=== PATIENT | female | born 1950 | race Caucasian/White ===

== ENCOUNTER 2022-04-24 08:09 | Outpatient (RCR) | payer MEDICARE, BC, SELFPAY ==
--- NOTE | 2022-04-20 16:30 | ONC.NURNOTE ---
Authorization: User: Ameena Raeshorty Date: 09/05/21 13:07 Type: Eligibility Determination Note... Request received from [facility] for prior authorization of Herceptin J9355, Docetaxel J9171, Carboplatin J9045, Aloxi J2469, Emend J1453 and Neulasta J2505. Patient carries Medicare as primary insurance. Per CMS.gov LCD [id number] no prior authorization is required for Herceptin, LCD [id number] no prior authorization is required for Docetaxel, LCD [id number] no prior authorization is required for Carboplatin and LCD [id number] no prior authorization is required for Neulasta. Per CMS.gov no prior authorization is required for Aloxi and Emend. Services are based on medical necessity and follows Medicare guidelines.
[2022-04-24 08:31] VITALS: BP 121/81; RESP 14; TEMP 36.4; O2SAT 96
[2022-04-24 08:34] LABS: Basophils Percent Auto 0.4 % (0.0-3.0); Eosinophils Percent Auto 1.6 % (0.0-7.0); Hematocrit 37.4 % (33.0-51.0); Hemoglobin* 12.4 gm/dL (12.0-16.0); Immature Granulocytes Abs Auto 0.01 K/uL (0.00-0.30); Lymphocytes Percent Auto 61.9 % (20-44); Mean Corpuscular HGB Conc 33 gm/dL (32-36); Mean Corpuscular Hemoglobin 31 pg (26-34); Mean Corpuscular Volume 94 fL (80-100); Monocytes Percent Auto 4.1 % (0.0-11.0); Neutrophils Percent Auto 31.9 % (42.0-72.0); Platelet Count* 346 K/uL (140-440); Red Blood Count 3.97 m/uL (4.00-5.20); White Blood Count* 11.09 K/uL (4.50-11.00)
[2022-04-24 08:56] LABS: Slide Review Reflex Yes
[2022-04-24 09:15] LABS: Slide Review Acceptable Review (Acceptable)
[2022-04-24 11:30] LABS: Albumin* 3.2 g/dL (3.3-5.0); Bilirubin Total* 0.3 mg/dL (0.1-1.5); Blood Urea Nitrogen* 17 mg/dL (7-30); Calcium* 9.4 mg/dL (8.4-10.6); Carbon Dioxide* 21 mmol/L (20-32); Chloride* 101 mmol/L (96-114); Creatinine* 0.6 mg/dL (0.5-1.5); Est. Creatinine Clearance* 40.81; Glucose* 167 mg/dL (60-115); Potassium* 4.6 mmol/L (3.6-5.1); Sodium* 133 mmol/L (135-149); Total Protein* 6.9 g/dL (6.0-8.3)
[2022-04-24 11:31] LABS: Alanine Aminotransferase* 37 U/L (4-35); Alkaline Phosphatase* 110 U/L (40-150); Aspartate Amino Transferase* 17 U/L (12-35)
[2022-04-24] MEDS: SODIUM CHLORIDE 0.9 % (FLUSH) 10 ML SYRINGE IVF (11:35)
[2022-04-24] MEDS: HEPARIN 500 UNIT/5 ML SYRINGE IVF (11:35)
--- NOTE | 2022-04-24 12:18 | ONC.NURNOTE ---
patient damir. treatment well. waited till na was back at 133 before discharged. zometa info given. echo scheduled. pt aware and has form to get dental approval for zometa.
--- NOTE | 2022-04-24 18:58 | ONC.NURNOTE ---
09/05/21 UR note documented by Ameena Bundy RN: Request received from [facility] for prior authorization of Herceptin J9355, Docetaxel J9171, Carboplatin J9045, Aloxi J2469, Emend J1453 and Neulasta J2505. Patient carries Medicare as primary insurance. Per CMS.gov LCD [id number] no prior authorization is required for Herceptin, LCD [id number] no prior authorization is required for Docetaxel, LCD [id number] no prior authorization is required for Carboplatin and LCD [id number] no prior authorization is required for Neulasta. Per CMS.gov no prior authorization is required for Aloxi and Emend. Services are based on medical necessity and follows Medicare guidelines.
--- NOTE | 2022-04-25 11:26 | URNOTE ---
Received request for prior auth for Zoledronic Acid(Zometa) J3489. Pt has medicare and BC Supplement. Prior auth is not required. Services are based on medical necessity and follow medicare guidelines.
== END 2022-05-14 23:59 | disposition home or self-care (01) ==
LOC: CCIC 08:09
PROVIDERS: Clinical Nurse Specialist; PCP Physician Assistant Medical; Visit Provider Internal Medicine Medical Oncology
DX: C50.919 Malignant neoplasm of unspecified site of unspecified female breast (principal); C77.3 Secondary and unspecified malignant neoplasm of axilla and upper limb lymph nodes; C50.912 Malignant neoplasm of unspecified site of left female breast; Z17.0 Estrogen receptor positive status [ER+]; Z79.811 Long term (current) use of aromatase inhibitors; C91.10 Chronic lymphocytic leukemia of B-cell type not having achieved remission; M81.8 Other osteoporosis without current pathological fracture; E87.1 Hypo-osmolality and hyponatremia
CPT/HCPCS: 36415; 36591; 80053; 85025; 96413; 99212; 99214; J1642; J7050; J9355

== ENCOUNTER 2022-05-31 12:40 | Outpatient (CLI) | payer MEDICARE, BC, SELFPAY | END 2022-05-31 12:41 | disposition home or self-care (01) | LOC: RAD 12:41 | PROVIDERS: PCP Physician Assistant Medical; Visit Provider Clinical Nurse Specialist | DX: I10 Essential (primary) hypertension (principal); I51.7 Cardiomegaly; C50.919 Malignant neoplasm of unspecified site of unspecified female breast; C77.3 Secondary and unspecified malignant neoplasm of axilla and upper limb lymph nodes; Z92.21 Personal history of antineoplastic chemotherapy | CPT/HCPCS: 93306 ==

== ENCOUNTER 2022-09-11 11:02 | Outpatient (CLI) | payer MEDICARE, BC, SELFPAY ==
--- NOTE | 2022-09-11 11:30 | CRLHL7_ITS ---
For Patients: As a result of the Century Cures Act, medical imaging exams and procedure reports are released immediately into your electronic medical record. You may view this report before your referring provider. If you have questions, please contact your health care provider. RIGHT SCREENING MAMMOGRAM WITH COMPUTER-AIDED DETECTION AND TOMOSYNTHESIS TECHNIQUE: CC and MLO views were obtained. These mammographic images have been obtained using full-field digital technique. These mammographic images were interpreted with the benefit of computer-aided detection. Breast Tomosynthesis was used in this interpretation. COMPARISON FILM: 05/03/21, 12/25/17. FINDINGS: The breasts are heterogeneously dense, which may obscure small masses IMPRESSION: There is no radiographic evidence for malignancy. ASSESSMENT: BI-RADS Category 1: Negative RECOMMENDATION: Routine screening mammogram in 1 year. A lay language report of this examination will be provided to the patient. Ernesto Mercado M.D. Diagnostic Radiologist [email or web address] TAMIKA/Dictated by: Ernesto Mercado MD @ 09/11/2022 12:48:00 PM (Electronically Signed)
== END 2022-09-11 11:03 | disposition home or self-care (01) ==
LOC: MAMMO 11:05
PROVIDERS: PCP Physician Assistant Medical; Visit Provider Internal Medicine Medical Oncology
DX: Z12.31 Encounter for screening mammogram for malignant neoplasm of breast (principal); R92.2 Inconclusive mammogram; C50.919 Malignant neoplasm of unspecified site of unspecified female breast; Z09 Encounter for follow-up examination after completed treatment for conditions other than malignant neoplasm
CPT/HCPCS: 77063; 77067; 93306

== ENCOUNTER 2022-09-18 08:00 | Outpatient (RCR) | payer MEDICARE, BC, SELFPAY ==
[2022-05-15 10:06] LABS: Basophils Absolute Auto 0.05 K/uL (0.00-0.30); Basophils Percent Auto 0.5 % (0.0-3.0); Eosinophils Absolute Auto 0.23 K/uL (0.00-0.50); Eosinophils Percent Auto 2.3 % (0.0-7.0); Hematocrit 36.7 % (33.0-51.0); Hemoglobin* 12.2 gm/dL (12.0-16.0); Immature Granulocytes Abs Auto 0.02 K/uL (0.00-0.30); Mean Corpuscular HGB Conc 33 gm/dL (32-36); Mean Corpuscular Hemoglobin 31 pg (26-34); Mean Corpuscular Volume 93 fL (80-100); Monocytes Percent Auto 3.8 % (0.0-11.0); Neutrophils Percent Auto 38.2 % (42.0-72.0); Platelet Count* 363 K/uL (140-440); RDW Coefficient of Variation % 13.2 % (11.5-15.5); Red Blood Count 3.95 m/uL (4.00-5.20); White Blood Count* 10.15 K/uL (4.50-11.00)
[2022-05-15 10:18] LABS: Albumin* 3.9 g/dL (3.3-5.0); Chloride* 100 mmol/L (96-114)
[2022-05-15 10:19] LABS: Potassium* 4.3 mmol/L (3.6-5.1); Sodium* 133 mmol/L (135-149)
[2022-05-15 10:21] LABS: Aspartate Amino Transferase* 34 U/L (12-35); Bilirubin Total* 0.2 mg/dL (0.1-1.5); Carbon Dioxide* 25 mmol/L (20-32); Creatinine* 0.6 mg/dL (0.5-1.5); Estimated Glomerular Filt Rate 96 ml/min
[2022-05-15 10:22] LABS: Alanine Aminotransferase* 30 U/L (4-35); Alkaline Phosphatase* 117 U/L (40-150); Blood Urea Nitrogen* 13 mg/dL (7-30); Calcium* 9.3 mg/dL (8.4-10.6); Glucose* 101 mg/dL (60-115)
[2022-05-15 10:42] LABS: Slide Review Reflex Yes
[2022-05-15 11:06] LABS: Slide Review Acceptable Review (Acceptable)
[2022-05-15 12:09] VITALS: BP 114/74; PULSE 83; RESP 16; TEMP 36.6; O2SAT 97
[2022-05-15] MEDS: 0.9 % SODIUM CHLORIDE 250 ml IV (12:10)
[2022-05-15] MEDS: HEPARIN 500 UNIT/5 ML SYRINGE IVF (12:10)
[2022-05-15] MEDS: SODIUM CHLORIDE 0.9 % (FLUSH) 10 ML SYRINGE IVF (12:10)
[2022-06-05 08:49] LABS: Basophils Percent Auto 0.3 % (0.0-3.0); Eosinophils Percent Auto 2.3 % (0.0-7.0); Hematocrit 36.3 % (33.0-51.0); Immature Granulocytes Abs Auto 0.01 K/uL (0.00-0.30); Lymphocytes Percent Auto 56.2 % (20-44); Mean Corpuscular HGB Conc 33 gm/dL (32-36); Mean Corpuscular Hemoglobin 30 pg (26-34); Mean Corpuscular Volume 92 fL (80-100); Monocytes Percent Auto 3.5 % (0.0-11.0); Neutrophils Percent Auto 37.6 % (42.0-72.0); Platelet Count* 346 K/uL (140-440); RDW Coefficient of Variation % 13.9 % (11.5-15.5); Red Blood Count 3.95 m/uL (4.00-5.20); White Blood Count* 12.69 K/uL (4.50-11.00)
[2022-06-05 08:59] LABS: Slide Review Reflex No
[2022-06-05 09:01] LABS: Albumin* 3.9 g/dL (3.3-5.0); Chloride* 100 mmol/L (96-114)
[2022-06-05 09:02] LABS: Potassium* 4.3 mmol/L (3.6-5.1); Sodium* 133 mmol/L (135-149)
[2022-06-05 09:04] LABS: Aspartate Amino Transferase* 40 U/L (12-35); Blood Urea Nitrogen* 19 mg/dL (7-30); Carbon Dioxide* 24 mmol/L (20-32); Creatinine* 0.7 mg/dL (0.5-1.5); Estimated Glomerular Filt Rate 92 ml/min; Total Protein* 6.9 g/dL (6.0-8.3)
[2022-06-05 09:05] LABS: Alanine Aminotransferase* 54 U/L (4-35); Alkaline Phosphatase* 104 U/L (40-150); Calcium* 9.8 mg/dL (8.4-10.6); Glucose* 65 mg/dL (60-115)
[2022-06-05 09:11] LABS: Bilirubin Total* < 0.1 mg/dL (0.1-1.5)
[2022-06-05] MEDS: SODIUM CHLORIDE 0.9 % (FLUSH) 10 ML SYRINGE IVF (10:31)
[2022-06-05] MEDS: HEPARIN 500 UNIT/5 ML SYRINGE IVF (10:31)
[2022-06-26 09:02] VITALS: BP 125/79; PULSE 65; RESP 16; TEMP 36.3; O2SAT 100
[2022-06-26 10:29] LABS: Albumin* 4.1 g/dL (3.3-5.0); Chloride* 98 mmol/L (96-114); Sodium* 131 mmol/L (135-149)
[2022-06-26 10:30] LABS: Potassium* 4.6 mmol/L (3.6-5.1)
[2022-06-26 10:32] LABS: Alanine Aminotransferase* 56 U/L (4-35); Alkaline Phosphatase* 104 U/L (40-150); Aspartate Amino Transferase* 49 U/L (12-35); Bilirubin Total* 0.2 mg/dL (0.1-1.5); Blood Urea Nitrogen* 17 mg/dL (7-30); Carbon Dioxide* 25 mmol/L (20-32); Creatinine* 0.7 mg/dL (0.5-1.5); Estimated Glomerular Filt Rate 92 ml/min; Total Protein* 6.9 g/dL (6.0-8.3)
[2022-06-26 10:33] LABS: Calcium* 9.6 mg/dL (8.4-10.6); Glucose* 156 mg/dL (60-115)
[2022-06-26] MEDS: HEPARIN 500 UNIT/5 ML SYRINGE IVF (11:34)
[2022-06-26] MEDS: SODIUM CHLORIDE 0.9 % (FLUSH) 10 ML SYRINGE IVF (11:34)
--- NOTE | 2022-06-26 15:22 | ONC.NURNOTE ---
Pt here for herceptin. Pt still has not received dental clearance for zometa. Pt aware she needs to make an appt with her dentist.
[2022-07-17 09:10] LABS: Basophils Percent Auto 0.3 % (0.0-3.0); Eosinophils Percent Auto 1.5 % (0.0-7.0); Hematocrit 36.6 % (33.0-51.0); Hemoglobin* 12.1 gm/dL (12.0-16.0); Immature Granulocytes Abs Auto 0.01 K/uL (0.00-0.30); Lymphocytes Percent Auto 57.8 % (20-44); Mean Corpuscular HGB Conc 33 gm/dL (32-36); Mean Corpuscular Hemoglobin 31 pg (26-34); Mean Corpuscular Volume 93 fL (80-100); Monocytes Percent Auto 4.9 % (0.0-11.0); Neutrophils Percent Auto 35.4 % (42.0-72.0); Platelet Count* 311 K/uL (140-440); Red Blood Count 3.94 m/uL (4.00-5.20); White Blood Count* 11.93 K/uL (4.50-11.00)
[2022-07-17 09:17] LABS: Slide Review Reflex No
[2022-07-17 09:28] LABS: Albumin* 4.2 g/dL (3.3-5.0); Chloride* 99 mmol/L (96-114); Sodium* 133 mmol/L (135-149)
[2022-07-17 09:29] LABS: Potassium* 4.4 mmol/L (3.6-5.1)
[2022-07-17 09:31] LABS: Alkaline Phosphatase* 102 U/L (40-150); Aspartate Amino Transferase* 36 U/L (12-35); Bilirubin Total* 0.3 mg/dL (0.1-1.5); Blood Urea Nitrogen* 18 mg/dL (7-30); Carbon Dioxide* 25 mmol/L (20-32); Creatinine* 0.8 mg/dL (0.5-1.5); Estimated Glomerular Filt Rate 79 ml/min; Total Protein* 6.9 g/dL (6.0-8.3)
[2022-07-17 09:32] LABS: Alanine Aminotransferase* 42 U/L (4-35); Glucose* 206 mg/dL (60-115)
[2022-07-17] MEDS: HEPARIN 500 UNIT/5 ML SYRINGE IVF (11:08)
[2022-07-17] MEDS: 0.9 % SODIUM CHLORIDE 250 ml IV (11:08)
[2022-07-17] MEDS: SODIUM CHLORIDE 0.9 % (FLUSH) 10 ML SYRINGE IVF (11:08)
[2022-08-07 08:18] VITALS: BP 115/73; PULSE 74; RESP 16; TEMP 36.4; O2SAT 98
[2022-08-07 08:32] LABS: Basophils Percent Auto 0.2 % (0.0-3.0); Eosinophils Percent Auto 2.5 % (0.0-7.0); Hematocrit 36.7 % (33.0-51.0); Immature Granulocytes Abs Auto 0.01 K/uL (0.00-0.30); Lymphocytes Percent Auto 62.5 % (20-44); Mean Corpuscular HGB Conc 33 gm/dL (32-36); Mean Corpuscular Hemoglobin 31 pg (26-34); Mean Corpuscular Volume 94 fL (80-100); Monocytes Percent Auto 4.2 % (0.0-11.0); Neutrophils Percent Auto 30.5 % (42.0-72.0); Platelet Count* 285 K/uL (140-440); RDW Coefficient of Variation % 13.7 % (11.5-15.5); Red Blood Count 3.92 m/uL (4.00-5.20); White Blood Count* 12.35 K/uL (4.50-11.00)
[2022-08-07 08:54] LABS: Albumin* 4.1 g/dL (3.3-5.0); Chloride* 98 mmol/L (96-114); Sodium* 129 mmol/L (135-149)
[2022-08-07 08:55] LABS: Potassium* 4.6 mmol/L (3.6-5.1)
[2022-08-07 08:57] LABS: Alanine Aminotransferase* 51 U/L (4-35); Alkaline Phosphatase* 87 U/L (40-150); Aspartate Amino Transferase* 42 U/L (12-35); Bilirubin Total* 0.2 mg/dL (0.1-1.5); Blood Urea Nitrogen* 22 mg/dL (7-30); Carbon Dioxide* 23 mmol/L (20-32); Creatinine* 0.8 mg/dL (0.5-1.5); Estimated Glomerular Filt Rate 79 ml/min; Glucose* 229 mg/dL (60-115); Slide Review Reflex No; Total Protein* 6.7 g/dL (6.0-8.3)
[2022-08-07 08:58] LABS: Calcium* 10.3 mg/dL (8.4-10.6)
[2022-08-07] MEDS: 0.9 % SODIUM CHLORIDE 250 ml IV (09:26)
[2022-08-07] MEDS: HEPARIN 500 UNIT/5 ML SYRINGE IVF (09:26)
[2022-08-07] MEDS: SODIUM CHLORIDE 0.9 % (FLUSH) 10 ML SYRINGE IVF (09:27)
--- NOTE | 2022-08-07 09:35 | ONC.NURNOTE ---
Sodium lower than usual-patient states she is taking one sodium tablet a day -doesn't drink too much water and loves salt so not sure why she is lower. Denies feeling any different ie: nausea,confusion increased weakness but is always weak so not a change for her. Talked with NATACHA Rodriguez and plan is to increase her sodium tablets to twice a day. Reviewed hyponatremia with patient and she states You already gave me that stuff and went through it.
[2022-08-28 08:26] LABS: Basophils Percent Auto 0.4 % (0.0-3.0); Eosinophils Percent Auto 1.7 % (0.0-7.0); Hematocrit 39.1 % (33.0-51.0); Hemoglobin* 12.9 gm/dL (12.0-16.0); Immature Granulocytes Pct Auto 0.1 %; Lymphocytes Percent Auto 47.1 % (20-44); Mean Corpuscular HGB Conc 33 gm/dL (32-36); Mean Corpuscular Hemoglobin 31 pg (26-34); Mean Corpuscular Volume 93 fL (80-100); Monocytes Percent Auto 4.7 % (0.0-11.0); Platelet Count* 342 K/uL (140-440); RDW Coefficient of Variation % 13.6 % (11.5-15.5); Red Blood Count 4.22 m/uL (4.00-5.20); White Blood Count* 13.55 K/uL (4.50-11.00)
[2022-08-28 08:30] LABS: Slide Review Reflex No
[2022-08-28 08:43] LABS: Albumin* 4.3 g/dL (3.3-5.0); Chloride* 99 mmol/L (96-114); Potassium* 4.7 mmol/L (3.6-5.1); Sodium* 132 mmol/L (135-149)
[2022-08-28 08:45] LABS: Bilirubin Total* 0.2 mg/dL (0.1-1.5); Carbon Dioxide* 25 mmol/L (20-32); Creatinine* 0.7 mg/dL (0.5-1.5); Estimated Glomerular Filt Rate 92 ml/min
[2022-08-28 08:46] LABS: Alanine Aminotransferase* 65 U/L (4-35); Alkaline Phosphatase* 101 U/L (40-150); Aspartate Amino Transferase* 46 U/L (12-35); Blood Urea Nitrogen* 16 mg/dL (7-30); Glucose* 111 mg/dL (60-115)
[2022-08-28] MEDS: SODIUM CHLORIDE 0.9 % (FLUSH) 10 ML SYRINGE IVF (09:32)
[2022-08-28] MEDS: HEPARIN 500 UNIT/5 ML SYRINGE IVF (09:32)
[2022-08-28] MEDS: 0.9 % SODIUM CHLORIDE 250 ml IV (09:32)
--- NOTE | 2022-09-15 12:09 | URNOTE ---
Request received for authorization for Herceptin (J9355). Prior authorization is not required as services are based on medical necessity and follow Medicare guidelines.
[2022-09-18 08:00] VITALS: BP 114/70; PULSE 68; RESP 14; TEMP 36.6; O2SAT 95
[2022-09-18 08:28] LABS: Basophils Absolute Auto 0.04 K/uL (0.00-0.30); Basophils Percent Auto 0.4 % (0.0-3.0); Eosinophils Absolute Auto 0.19 K/uL (0.00-0.50); Eosinophils Percent Auto 1.8 % (0.0-7.0); Hematocrit 38.8 % (33.0-51.0); Hemoglobin* 12.9 gm/dL (12.0-16.0); Immature Granulocytes Abs Auto 0.01 K/uL (0.00-0.30); Immature Granulocytes Pct Auto 0.1 %; Lymphocytes Percent Auto 55.6 % (20-44); Mean Corpuscular HGB Conc 33 gm/dL (32-36); Mean Corpuscular Hemoglobin 31 pg (26-34); Mean Corpuscular Volume 92 fL (80-100); Monocytes Percent Auto 5.2 % (0.0-11.0); Neutrophils Percent Auto 36.9 % (42.0-72.0); Platelet Count* 339 K/uL (140-440); RDW Coefficient of Variation % 13.1 % (11.5-15.5); Red Blood Count 4.22 m/uL (4.00-5.20)
[2022-09-18 08:35] LABS: Slide Review Reflex No
[2022-09-18 08:44] LABS: Albumin* 4.2 g/dL (3.3-5.0); Chloride* 99 mmol/L (96-114); Potassium* 4.8 mmol/L (3.6-5.1); Sodium* 132 mmol/L (135-149)
[2022-09-18 08:45] VITALS: BP 114/70; PULSE 68; RESP 14; TEMP 36.6; O2SAT 95
[2022-09-18 08:47] LABS: Alanine Aminotransferase* 33 U/L (4-35); Alkaline Phosphatase* 99 U/L (40-150); Aspartate Amino Transferase* 29 U/L (12-35); Bilirubin Total* 0.5 mg/dL (0.1-1.5); Blood Urea Nitrogen* 17 mg/dL (7-30); Carbon Dioxide* 27 mmol/L (20-32); Creatinine* 0.7 mg/dL (0.5-1.5); Estimated Glomerular Filt Rate 92 ml/min; Glucose* 287 mg/dL (60-115)
[2022-09-18 08:48] LABS: Calcium* 10.6 mg/dL (8.4-10.6)
[2022-09-18] MEDS: HEPARIN 500 UNIT/5 ML SYRINGE IVF (10:03)
[2022-09-18] MEDS: SODIUM CHLORIDE 0.9 % (FLUSH) 10 ML SYRINGE IVF (10:03)
[2022-09-18] MEDS: 0.9 % SODIUM CHLORIDE 250 ml IV (10:03)
--- NOTE | 2022-09-18 13:52 | ONC.NURNOTE ---
blood sugar a bit high due to recent eating. pt aware and monitoring. sodium 132. discussed with Dr. Castellanos. pt is taking na. 2 tabs a day for the last month and will continue.
--- NOTE | 2022-09-21 13:29 | ONC.NURNOTE ---
Call from patients daughter Rosario with questions about Anastrozole. They were unsure if Angelica was supposed to continue taking this medication. I informed them that we would continue this medication for a minimum of 5 years, 01/2027. Rosario is requesting a refill. Request given to Jennifer Vogt APRN to review.
== END 2022-11-11 23:59 | disposition home or self-care (01) ==
LOC: CCIC 08:00
PROVIDERS: Clinical Nurse Specialist; PCP Physician Assistant Medical; Referring Provider Physician Assistant Medical; Visit Provider Internal Medicine Medical Oncology
DX: C50.912 Malignant neoplasm of unspecified site of left female breast (principal); C77.3 Secondary and unspecified malignant neoplasm of axilla and upper limb lymph nodes; Z79.811 Long term (current) use of aromatase inhibitors
CPT/HCPCS: 36415; 36591; 80048; 80053; 85025; 96413; 99212; 99214; 99215; J1642; J7050; J9355

== ENCOUNTER 2022-11-03 11:14 | Outpatient (CLI) | payer MEDICARE, BC, SELFPAY ==
[2022-11-03 13:51] LABS: Creatinine Urine 68.2 mg/dL
[2022-11-03 13:52] LABS: Microalbumin Creatinine Ratio 40 mg/g (0-30); Microalbumin Urine 3 mg/dL
[2022-11-03 15:04] LABS: Albumin* 4.2 g/dL (3.3-5.0); Chloride* 96 mmol/L (96-114); Sodium* 131 mmol/L (135-149)
[2022-11-03 15:06] LABS: Cholesterol* 174 mg/dL (90-199); Creatinine* 0.8 mg/dL (0.5-1.5); Estimated Glomerular Filt Rate 78 ml/min
[2022-11-03 15:07] LABS: Alanine Aminotransferase* 38 U/L (4-35); Alkaline Phosphatase* 95 U/L (40-150); Aspartate Amino Transferase* 28 U/L (12-35); Bilirubin Total* 0.5 mg/dL (0.1-1.5); Blood Urea Nitrogen* 19 mg/dL (7-30); Carbon Dioxide* 30 mmol/L (20-32); Glucose* 196 mg/dL (60-115); Total Protein* 6.7 g/dL (6.0-8.3); Triglycerides* 144 mg/dL (40-149)
[2022-11-03 15:08] LABS: Calcium* 10.3 mg/dL (8.4-10.6); HDL Cholesterol* 82 mg/dL (>=50); LDL Cholesterol Calculated 63 mg/dL (<100)
[2022-11-03 15:51] LABS: Vitamin B12* 658 pg/mL (243-894)
== END 2022-11-03 11:15 | disposition home or self-care (01) ==
PROVIDERS: PCP Physician Assistant Medical; Visit Provider Physician Assistant Medical
DX: E11.9 Type 2 diabetes mellitus without complications (principal); N18.9 Chronic kidney disease, unspecified; I10 Essential (primary) hypertension; E87.1 Hypo-osmolality and hyponatremia
CPT/HCPCS: 80053; 80061; 82043; 82570; 82607; 84443

== ENCOUNTER 2022-11-27 09:23 | Outpatient (RCR) | payer MEDICARE, BC, SELFPAY | END 2023-05-26 23:59 | disposition home or self-care (01) | LOC: CCIC 09:23 | PROVIDERS: PCP Physician Assistant Medical; Referring Provider Physician Assistant Medical; Visit Provider Internal Medicine Medical Oncology | DX: C50.912 Malignant neoplasm of unspecified site of left female breast (principal); C91.10 Chronic lymphocytic leukemia of B-cell type not having achieved remission; M81.8 Other osteoporosis without current pathological fracture; T38.6X5A Adverse effect of antigonadotrophins, antiestrogens, antiandrogens, not elsewhere classified, initial encounter | CPT/HCPCS: 99212; 99214 ==

== ENCOUNTER 2023-12-06 13:00 | Outpatient (RCR) | payer MEDICARE, BC, SELFPAY ==
[2023-06-28 10:20] LABS: Basophils Percent Auto 0.4 % (0.0-3.0); Eosinophils Percent Auto 2.4 % (0.0-7.0); Hemoglobin* 13.3 gm/dL (12.0-16.0); Lymphocytes Percent Auto 60.4 % (20-44); Mean Corpuscular HGB Conc 32 gm/dL (32-36); Mean Corpuscular Hemoglobin 31 pg (26-34); Mean Corpuscular Volume 95 fL (80-100); Monocytes Percent Auto 4.8 % (0.0-11.0); Platelet Count* 283 K/uL (140-440)
[2023-06-28 10:59] LABS: Slide Review Acceptable Review (Acceptable); Slide Review Reflex Yes
[2023-12-06 13:08] LABS: Basophils Absolute Auto 0.04 K/uL (0.00-0.30); Basophils Percent Auto 0.5 % (0.0-3.0); Eosinophils Absolute Auto 0.19 K/uL (0.00-0.50); Eosinophils Percent Auto 2.2 % (0.0-7.0); Hematocrit 40.7 % (33.0-51.0); Hemoglobin* 13.2 gm/dL (12.0-16.0); Lymphocytes Percent Auto 57.9 % (20-44); Mean Corpuscular HGB Conc 32 gm/dL (32-36); Mean Corpuscular Hemoglobin 31 pg (26-34); Mean Corpuscular Volume 94 fL (80-100); Monocytes Percent Auto 4.7 % (0.0-11.0); Neutrophils Percent Auto 34.7 % (42.0-72.0); Platelet Count* 318 K/uL (140-440); RDW Coefficient of Variation % 12.7 % (11.5-15.5); Red Blood Count 4.31 m/uL (4.00-5.20); White Blood Count* 8.45 K/uL (4.50-11.00)
[2023-12-06 13:11] LABS: Slide Review Reflex No
== END 2023-12-25 23:59 | disposition home or self-care (01) ==
LOC: CCIC 13:00
PROVIDERS: Internal Medicine Hematology & Oncology; PCP Physician Assistant Medical; Referring Provider Physician Assistant Medical; Visit Provider Physician Assistant
DX: C91.10 Chronic lymphocytic leukemia of B-cell type not having achieved remission (principal); C50.912 Malignant neoplasm of unspecified site of left female breast; Z17.0 Estrogen receptor positive status [ER+]; Z79.811 Long term (current) use of aromatase inhibitors; M81.8 Other osteoporosis without current pathological fracture; T38.6X5A Adverse effect of antigonadotrophins, antiestrogens, antiandrogens, not elsewhere classified, initial encounter; N18.9 Chronic kidney disease, unspecified; Z90.12 Acquired absence of left breast and nipple
CPT/HCPCS: 36415; 80061; 82043; 82570; 82607; 83036; 85025; 99212; 99213; 99214; G0463

== ENCOUNTER 2023-12-18 13:42 | Outpatient (CLI) | payer MEDICARE, BC, SELFPAY ==
--- NOTE | 2023-12-18 13:40 | MM_ITS ---
Patient: GAUTAM SINHA Facility:?[facility] Patient ID:?[id number] Site Patient ID:?[id number]. Site :?[id number] Study:?XRay-Breast Right 3D W/CAD-12/18/2023 2:43:45 PM Ordering Physician:Jeni Navas Final Report: BILATERAL SCREENING MAMMOGRAM WITH COMPUTER-AIDED DETECTION AND TOMOSYNTHESIS TECHNIQUE: CC and MLO views were obtained. These mammographic images have been obtained using full-field digital technique. These mammographic images were interpreted with the benefit of computer-aided detection. Breast Tomosynthesis was used in this interpretation. COMPARISON FILM: 09/11/22, 05/03/21, 12/25/17. FINDINGS: The breasts are extremely dense, which lowers the sensitivity of mammography. IMPRESSION: There is no radiographic evidence for malignancy. ASSESSMENT: BI-RADS Category 2: Benign RECOMMENDATION: Routine screening mammogram in 1 year. A lay language report of this examination will be provided to the patient. Ernesto Mercado M.D. Diagnostic Radiologist [email or web address] DSM/sp R& Transcribed: 5:50 p.m. SP/Dictated by: Ernesto Mercado MD @ 12/19/2023 1:18:00 PM Signed by:?Ernesto Mercado MD @12/20/2023 5:40:58 AM (Electronic Signature)
== END 2023-12-18 13:43 | disposition home or self-care (01) ==
PROVIDERS: PCP Physician Assistant Medical; Visit Provider Internal Medicine Hematology & Oncology
DX: Z12.31 Encounter for screening mammogram for malignant neoplasm of breast (principal); R92.2 Inconclusive mammogram
CPT/HCPCS: 77063; 77067

== ENCOUNTER 2024-01-23 10:15 | Outpatient (CLI) | payer MEDICARE, BC, SELFPAY | END 2024-01-23 10:16 | disposition home or self-care (01) | LOC: LKVREF 10:16 | PROVIDERS: PCP Physician Assistant Medical; Visit Provider Physician Assistant Medical | DX: Z79.84 Long term (current) use of oral hypoglycemic drugs; E11.65 Type 2 diabetes mellitus with hyperglycemia | CPT/HCPCS: 80076 ==

== ENCOUNTER 2024-05-28 13:56 | Outpatient (CLI) | payer MEDICARE, BC, SELFPAY ==
--- NOTE | 2024-05-28 14:00 | CRLHL7_ITS ---
For Patients: As a result of the Century Cures Act, medical imaging exams and procedure reports are released immediately into your electronic medical record. You may view this report before your referring provider. If you have questions, please contact your health care provider. DXA BONE MINERAL DENSITY STUDY Current height (in): 54.0. Weight (lb): 124.0. Menopause age: 55. Ethnicity: White. Reason for exam: Aromatase Inhibitors. 1. Have you had a previous hip or vertebral fracture? No. 2. Have you had any fractures during your adult life which did not result from significant trauma (e.g., auto accident)? No. 3. Did either of your parents have a hip fracture? No. 4. Do you smoke? Yes. 5. Have you ever taken Glucocorticoids? No. 6. Do you have rheumatoid arthritis? No. 7. Do you have secondary osteoporosis? No. 8. Do you drink 3 or more alcoholic drinks per day? No. 9. Are you being treated for osteoporosis? No. 10. Have you ever taken any of the following medications: Actonel, Evista, Fosamax, Miacalcin, Reclast, Boniva, Forteo, HRT (i.e. estrogen/hormone therapy), Protelos, Prolia, Vitamin D, Calcium, other ??? please specify. ANSWER: Yes, Boniva, vitamin D. 11. Do you have any of the following medical conditions: Anorexia or bulimia, asthma or emphysema, end stage renal disease, hyperparathyroidism, any seizure disorders, cancer, inflammatory bowel diseases, hysterectomy, other ??? please specify. ANSWER: Yes, breast cancer. 12. What was your maximum height (inches)? 62. 13. Do you perform weight bearing exercise regularly? No. 14. Do you regularly consume dairy products? Yes. 15. Do you drink caffeinated beverages? Yes. 16. At what age did your period start? 13. 17. Are you premenopausal? No. 18. How many full-term pregnancies have you had? 2. 19. Have you ever missed your period for more than 6 months in a row (not including or menopause)? No. TECHNIQUE: Bone mineral density study was performed using the [employer]. FINDINGS: The results of the study expressed as bone mineral density (BMD) are as follows: Lumbar spine L1 to L3: BMD: 1.113 g/cm2. T-score: 0.9. Z-score: 3.1 Neck Left: BMD: 0.526 g/cm2. T-score: -2.9. Z-score: -0.9 Right: BMD: 0.536 g/cm2. T-score: -2.8. Z-score: -0.8 Total Left: BMD: 0.629 g/cm2. T-score: -2.6. Z-score: -0.9 Right: BMD: 0.667 g/cm2. T-score: -2.3. Z-score: -0.6 IMPRESSION: Osteoporosis. *Comparison exams done prior to 03/2020 were performed on different unit, [id number]. COMPARISON: Compared with scan of 03/09/2022, the bone mineral density has increased by 8.1 percent at the spine and decreased by 1.5 percent at the hip. Mary Jane Golden M.D. Body/Interventional Radiologist [email or web address] Transcribed: 10:36 am DW/Dictated by: Mary Jane Golden MD @ 05/30/2024 9:03:00 AM (Electronically Signed)
== END 2024-05-28 13:57 | disposition home or self-care (01) ==
LOC: RAD 13:56
PROVIDERS: PCP Physician Assistant Medical; Visit Provider Physician Assistant
DX: M81.0 Age-related osteoporosis without current pathological fracture (principal); Z79.811 Long term (current) use of aromatase inhibitors
CPT/HCPCS: 77080

== ENCOUNTER 2024-11-10 13:51 | Outpatient (CLI) | payer MEDICARE, BC, SELFPAY | END 2024-11-10 13:52 | disposition home or self-care (01) | LOC: CT 13:52 | PROVIDERS: PCP Physician Assistant Medical; Visit Provider Physician Assistant Medical | DX: Z12.2 Encounter for screening for malignant neoplasm of respiratory organs (principal); R91.8 Other nonspecific abnormal finding of lung field; I70.0 Atherosclerosis of aorta; F17.210 Nicotine dependence, cigarettes, uncomplicated; Z72.0 Tobacco use | CPT/HCPCS: 71271 ==

== ENCOUNTER 2025-02-23 13:47 | Outpatient (RCR) | payer MEDICARE, BC, SELFPAY ==
[2025-02-23 14:22] LABS: Hematocrit* 38.1 % (33.0-51.0); Hemoglobin* 12.6 gm/dL (12.0-16.0); Immature Granulocytes Pct Auto 0.1 %; Mean Corpuscular HGB Conc 33 gm/dL (32-36); Mean Corpuscular Hemoglobin 31 pg (26-34); Mean Corpuscular Volume 95 fL (80-100); RDW Coefficient of Variation % 12.7 % (11.5-15.5); Red Blood Count* 4.03 m/uL (4.00-5.20); White Blood Count* 12.02 K/uL (4.50-11.00)
[2025-02-23 14:49] LABS: Immature Granulocytes Abs Auto 0.00 K/uL (0.00-0.30); Lymphocytes Absolute Auto 6.20 K/uL (0.90-2.90)
[2025-02-23 14:50] LABS: Slide Review Reflex No
--- NOTE | 2025-04-03 11:57 | ONC.NURNOTE ---
Pall to patient with results of her recent hip MRI. Spoke with patients daughter and informed her that it did not show any evidence of cancer. Per KAYKAY Deluca, patient to defer to her PCP to discuss further management of her hip pain.
== END 2025-08-22 23:59 | disposition home or self-care (01) ==
LOC: CCIC 13:47
PROVIDERS: PCP Physician Assistant Medical; Referring Provider Physician Assistant Medical; Visit Provider Physician Assistant
DX: C50.912 Malignant neoplasm of unspecified site of left female breast (principal); Z17.1 Estrogen receptor negative status [ER-]; M81.0 Age-related osteoporosis without current pathological fracture; Z79.810 Long term (current) use of selective estrogen receptor modulators (SERMs); M25.551 Pain in right hip; C91.10 Chronic lymphocytic leukemia of B-cell type not having achieved remission
CPT/HCPCS: 36415; 85025; 99214; G0463

== ENCOUNTER 2025-03-30 12:50 | Outpatient (CLI) | payer MEDICARE, BC, SELFPAY ==
--- NOTE | 2025-03-30 13:00 | CRLHL7_ITS ---
For Patients: As a result of the Century Cures Act, medical imaging exams and procedure reports are released immediately into your electronic medical record. You may view this report before your referring provider. If you have questions, please contact your health care provider. CLINICAL INDICATION: Right hip pain. Metastatic breast cancer. COMPARISON IMAGING STUDIES: PET-CT from 09/09/2021. TECHNICAL: Axial, axial oblique, sagittal and coronal PDFS small field of view images of the right hip. Coronal and axial T1 and PDFS large field of view images of the entire pelvis. Axial and coronal T1 post thang fat-sat images following the administration of 12 mL of Dotarem intravenous gadolinium. 1.5 Marla MR scanner. FINDINGS: RIGHT HIP: Small amount of right hip joint fluid. No abnormal synovial enhancement nor erosive change. The articular surfaces are smooth without focal articular cartilage defect. There is degenerative tearing of the anterior to anterior superior acetabular labrum. No avascular necrosis of the right femoral head. LEFT HIP: Small amount of left hip joint fluid. No abnormal synovial thickening or erosive change. The articular surfaces are smooth without focal articular cartilage defect. No avascular necrosis of the left femoral head. OSSEOUS STRUCTURES: No fracture. No pathologic marrow replacement process involving the pelvis or proximal femora. No acute stress related change. There is bone marrow edema within the lumbar spine which likely relates to degenerative endplate changes. MUSCULOTENDINOUS STRUCTURES AND BURSAE: No trochanteric bursal fluid collection. There is mild peritrochanteric enhancement on the left suggesting mild inflammatory change. No high-grade distal gluteal tendon tear. There is tendinosis of the right common hamstring tendon. Distal iliopsoas tendons are intact. OTHER FINDINGS: Degenerative changes of the sacroiliac joints. Degenerative changes within the spine. INTRAPELVIC CONTENTS: No pelvic fluid collection. No pelvic mass. IMPRESSION: 1. No osseous metastatic disease involving the pelvis or proximal femora. 2. On the right, there is mild degenerative acetabular labral tearing. The articular surfaces of the hip joint are smooth without focal articular cartilage defect. 3. No fracture or AVN. 4. No bursal fluid collection. No high-grade tendon tearing. 5. Degenerative changes of the spine with vertebral body bone marrow edema likely related to degenerative endplate changes. Dictated by Mani Lopez MD @ 03/31/2025 10:26:12 AM (Electronically Signed)
== END 2025-03-30 12:51 | disposition home or self-care (01) ==
LOC: MRI 12:52
PROVIDERS: PCP Physician Assistant Medical; Visit Provider Physician Assistant
DX: M25.551 Pain in right hip (principal); S63.591A Other specified sprain of right wrist, initial encounter; M89.9 Disorder of bone, unspecified; C50.912 Malignant neoplasm of unspecified site of left female breast
CPT/HCPCS: 73723; A9575

== ENCOUNTER 2025-09-29 20:26 | Outpatient (CLI) | payer MEDICARE, BC, SELFPAY | END 2025-09-29 20:27 | disposition home or self-care (01) | LOC: AMB 10-02 14:17 | PROVIDERS: PCP Physician Assistant Medical; Visit Provider Emergency Medicine | DX: R41.82 Altered mental status, unspecified (principal); E16.2 Hypoglycemia, unspecified | CPT/HCPCS: A0998 ==